=== PATIENT | male | born 1980 | race Two or more races ===

== ENCOUNTER 2020-01-08 18:56 | Emergency (ER) | payer OTHER ==
[~2020-01-08] VITALS: Ht 167.6 cm; Wt 65.0 kg
[2020-01-08 19:06] VITALS: BP 122/81
== END 2020-01-08 19:20 ==
LOC: ER 18:58
DX: Z04.1 Encounter for examination and observation following transport accident (principal); V87.7XXA Person injured in collision between other specified motor vehicles (traffic), initial encounter; Y93.89 Activity, other specified; Y92.488 Other paved roadways as the place of occurrence of the external cause; Y99.8 Other external cause status
CPT/HCPCS: 99283

== ENCOUNTER 2020-01-20 15:45 | Emergency (ER) | payer OTHER ==
[~2020-01-20] VITALS: Ht 175.3 cm; Wt 66.0 kg
[2020-01-20 16:10] VITALS: BP 146/76
== END 2020-01-20 16:13 | disposition home or self-care (01) ==
LOC: ER 15:46
DX: T40.411A Poisoning by fentanyl or fentanyl analogs, accidental (unintentional), initial encounter (principal); F19.90 Other psychoactive substance use, unspecified, uncomplicated; Z60.2 Problems related to living alone; Y92.89 Other specified places as the place of occurrence of the external cause
CPT/HCPCS: 99284

== ENCOUNTER 2024-06-20 17:26 | Emergency (ER) | payer OTHER ==
[~2024-06-20] VITALS: Ht 157.5 cm; Wt 65.9 kg
[2024-06-20] MEDS ORDERED: CEPH-585 PO (19:46)
[2024-06-20] MEDS: TETanus/Pertussis (Acell)/Diphther VAC/PF (Tdap-Adult) 0.5ml syringe IMVAC ONE (19:54)
[2024-06-20 20:08] VITALS: BP 100/62; PULSE 98; RESP 20; TEMP 98.6; O2SAT 99
== END 2024-06-20 20:09 | disposition home or self-care (01) ==
LOC: ER 17:27
DX: S61.411A Laceration without foreign body of right hand, initial encounter (principal); W23.2XXA Caught, crushed, jammed or pinched between a moving and stationary object, initial encounter; Y93.89 Activity, other specified; Y92.89 Other specified places as the place of occurrence of the external cause; Y99.8 Other external cause status
CPT/HCPCS: 73140; 90471; 90715; 99283